=== PATIENT | male | born 1985 | race Two or more races ===

== ENCOUNTER 2025-03-11 19:42 | Emergency (ER) | payer BC, SELFPAY ==
[2025-03-11 19:43] VITALS: BMI 27.3
[2025-03-11 20:21] VITALS: BP 161/95; PULSE 81; RESP 20; TEMP 36.6; O2SAT 96
--- NOTE | 2025-03-11 20:31 | EDNOTE_ITS ---
ED Back Injury Pain RME/HPI General Chief Complaint: Back Pain/Injury Stated Complaint: LOWER BACK PAIN X THIS AM Time Seen by Provider: 03/11/25 20:26 Arrival date/time: 03/11/25 19:42 39M with no significant PMH presents to ED with R lower back pain after he lifted something heavy without using his legs. Patient denies fall/trauma, dysuria/hematuria, N/V, paresthesia, and bowel/bladder incontinence. Limitations: no limitations Related Data Allergies Allergy/AdvReac Type Severity Reaction Status Date / Time No Known Allergies Allergy Verified 03/11/25 19:45 Review of Systems Review of Systems Systems Reviewed: All systems reviewed, normal except as documented Constitutional Constitutional: Reports system reviewed and no additional complaints, except as documented, Denies fever(s) and Denies headache(s) ENT Ears, Nose, Mouth, and Throat: Denies disequilibrium and Denies headache(s) Cardiovascular Cardiovascular: Reports system reviewed and no additional complaints, except as documented, Denies chest pain and Denies dyspnea Respiratory Respiratory: Reports system reviewed and no additional complaints, except as documented, Denies cough and Denies dyspnea Gastrointestinal Gastrointestinal: Reports system reviewed and no additional complaints, except as documented, Denies abdominal pain, Denies nausea and Denies vomiting Musculoskeletal Musculoskeletal: Reports as per HPI and Reports arthralgias Neurologic Neurologic: Reports system reviewed and no additional complaints, except as documented, Denies confusion, Denies disequilibrium and Denies headache(s) Psychiatric Psychiatric: Denies confusion Past Medical History Social History SMOKING STATUS: Never smoker ED Exam General Limitations: Present no limitations General appearance: Present alert and in no apparent distress Head Head exam: Present atraumatic Eye Eye exam: Present normal appearance, PERRL and EOMI ENT ENT exam: Present normal exam, normal oropharynx and mucous membranes moist Neck Neck exam: Present normal inspection, full ROM and trachea midline Chest Chest inspection: Present normal inspection and symmetric chest wall rise Respiratory Respiratory exam: Present normal lung sounds bilaterally Cardiovascular Cardiovascular exam: Present regular rate, normal rhythm and normal heart sounds Abdominal Exam Abdominal exam: Present soft and normal bowel sounds Extremities Exam Extremities exam: Present normal inspection and full ROM Back Exam Back exam: Present normal inspection and full ROM Neurological Exam Neurological exam: Present alert, oriented X3 and CN II-XII intact Psychiatric Psychiatric exam: Present normal affect and normal mood Skin Skin exam: Present warm, dry, intact and normal color Course Quality Measures none Orders Category Date Time Status CYCLObenzaPRINE [Flexeril] Med 03/11/25 20:27 Discontinued 5 mg PO X1 ONE Morphine Inj Med 03/11/25 20:27 Discontinued 5 mg IM X1 ONE Vital Signs Vital signs: Vital Signs Temperature 97.9 F 03/11/25 20:21 Pulse Rate 81 03/11/25 20:21 Respiratory Rate 20 03/11/25 20:21 Blood Pressure 161/95 H 03/11/25 20:21 Pulse Oximetry (%) 96 03/11/25 20:21 Oxygen Delivery Method Room Air 03/11/25 20:21 O2 at 96% on RA and WNLs Back Pain / Injury MDM Narrative MDM Narrative:: 39M with no significant PMH presents to ED with R lower back pain after he lifted something heavy without using his legs. Patient denies fall/trauma, dysuria/hematuria, N/V, paresthesia, and bowel/bladder incontinence. Physical exam reveals uncomfortable-appearing male. Patient is afebrile and alert. Patient declines observation period. Patient data External records reviewed:: None Clinical information provided by:: patient Social determinants that could affect healthcare access:: none Patient has the following chronic illnesses:: none How is presenting disease/condition affected by chronic disease/condition?: no chronic disease Evaluation data The following diagnostics were reviewed and interpreted by me:: other (specify) (none) Lab and/or radiology exams considered but not ordered:: not ordered Interpretation Summary: n/a Medications / Prescriptions Medications or Prescriptions considered but not ordered:: ordered Medication administrations:: Medication Administration History Discontinued Medications Cyclobenzaprine HCl (Cyclobenzaprine 5 Mg Tablet) 5 mg PO X1 ONE Stop: 03/11/25 20:28 Morphine Sulfate (Morphine Sulf Inj 10 Mg/Ml Vial) 5 mg IM X1 ONE Stop: 03/11/25 20:28 above Consultations Consultation(s) initiated? (list below): No Diagnosis Differential diagnosis back pain/injury: lumbar radiculopathy, sciatica, strain of lumbar region, renal colic, pyelonephritis, thoracic back pain, AAA and discitis Most likely diagnosis given after review of the tests above:: strain of lumbar region Admission Indicated Admission indicated?: not indicated Admission Request Was there a request for admission?: No Disposition Plan Disposition Plan: Discharge Discharge Attestation Discharge Attestation: The patient and all family members were given an opportunity to ask questions and understood the discharge instructions. Discharge instructions specifically effects, indications for sooner follow up or return to the emergency department, and the expected course of current diagnosis. Patient condition: Stable Discharge Plan Plan Patient Disposition: HOME (Self Care) Discharge Disposition comment: Stable Problem List Clinical Impression: Strain of lumbar region Patient/Caregiver Discharge Instructions Education Materials: ED Back Sprain/Strain Additional Instructions: Please follow-up with PCP within 24-48 hours and return immediately if symptoms worsen. If problem persists, recommend outpatient PT and/or MRI follow-up. In the meantime, rest, use ice/heat, and/or compression. Print Language: Japanese Stand Alone Forms: Patient Portal Info Letter LARRY/XAVI Supervising Physician LARRY/XAVI Supervising Physician: Dr. Hauser
[2025-03-11] MEDS: MORPHINE SULF INJ 10 MG/ML VIAL 5 MG IM (21:27)
== END 2025-03-11 21:30 | disposition home or self-care (01) ==
LOC: SERX 21:37
PROVIDERS: Emergency Provider Emergency Medicine
DX: S39.012A Strain of muscle, fascia and tendon of lower back, initial encounter (principal); X50.0XXA Overexertion from strenuous movement or load, initial encounter
CPT/HCPCS: 96372; 99283; J2270; A9270